=== PATIENT | male | born 1970 | race African-American/Black ===

== ENCOUNTER 2018-05-10 12:34 | Emergency (ER) | payer BC, OTHER ==
[~2018-05-10] VITALS: Ht 172.7 cm; Wt 81.7 kg
[~2018-05-10 12:34] MED LIST: ATRIPLA TABLET1 EACH PO; BENICAR HCT 401 EAC1 PO; BENICAR40 MG PO; BYSTOLIC 5 MG5 M1 PO; CORTISPORIN OTI10 M2; EDARBYCLOR 40-1 EAC1 PO; GENVOYA TABLET1 EACH PO; HYDROCHLOROTHIA25 M1 PO; MECLIZINE 25 MG25 M1 PO; MECLIZINE HCL25 M1 PO; NORVASC10 MG PO; ONDANSETRON ODT4 MG PO; POTASSIUM20 PO; ROSUVASTATIN CA10 MG PO; VALIUM2 MG PO
[2018-05-10 12:53] VITALS: BP 138/78
[2018-05-10] MEDS ORDERED: PREDNISONE 10 M10 MG PO (12:54)
== END 2018-05-10 13:31 | disposition home or self-care (01) ==
LOC: ER 12:34
DX: H69.91 Unspecified Eustachian tube disorder, right ear (principal); I10 Essential (primary) hypertension; Z96.643 Presence of artificial hip joint, bilateral; R42 Dizziness and giddiness; Z88.5 Allergy status to narcotic agent

== ENCOUNTER 2018-12-06 12:06 | Emergency (ER) | payer BC, OTHER ==
[~2018-12-06] VITALS: Ht 172.7 cm; Wt 86.2 kg
[~2018-12-06 12:06] MED LIST changes: +PREDNISONE 10 M10 MG PO
[2018-12-06] MEDS ORDERED: BYSTOLIC 5 MG5 M1 PO (12:20)
[2018-12-06 12:41] LABS: ABSOLUTE NEUTROPHILS 2.5 thou/uL (1.4-8.2); BASOPHILS 0.6 % (0.0-2.0); EOSINOPHILS 0.9 % (0.0-3.0); HEMATOCRIT 40.5 % (42.0-52.0); HEMOGLOBIN 14.2 gm/dL (14.0-18.0); LYMPHOCYTES 42.5 % (24.0-44.0); MCH 34.2 pg (26.0-34.0); MCHC 35.1 g/dL (28.0-37.0); MCV 97.4 fL (80.0-100.0); MONOCYTES 10.9 % (1.0-8.0); PLATELET COUNT 208 thou/uL (150-400); POLYS 45.1 % (36.0-66.0); RBC 4.16 mil/uL (4.50-6.00); WBC 5.6 thou/uL (4.0-11.0)
[2018-12-06 12:49] LABS: CALCIUM 9.5 mg/dL (8.5-10.1); CREATININE 1.7 mg/dL (0.7-1.3); POTASSIUM 3.2 mmol/L (3.5-5.1)
[2018-12-06 12:55] LABS: ALBUMIN 4.1 g/dL (3.4-5.0); TOTAL BILIRUBIN 0.4 mg/dL (<0.1-1.0); TOTAL PROTEIN 8.3 g/dL (6.4-8.2)
[2018-12-06 13:23] LABS: URINE BILIRUBIN NEGATIVE (Negative); URINE BLOOD 3+ (Negative); URINE CLARITY CLEAR; URINE COLOR YELLOW; URINE GLUCOSE-RANDOM* NEGATIVE (Negative); URINE KETONES NEGATIVE (Negative); URINE LEUKOCYTES-REFLEX NEGATIVE (Negative); URINE NITRITE-REFLEX NEGATIVE (Negative); URINE PROTEIN (DIPSTICK) NEGATIVE (Negative); URINE UROBILINOGEN 0.2 E.U./dl (0.2-1.0)
[2018-12-06 13:34] LABS: BACTERIA-REFLEX None Seen /HPF (None Seen); CASTS None Seen /LPF (None Seen); CRYSTALS None Seen /LPF (None Seen); MUCUS 4-6 Moderate strn/LPF (None Seen); SQUAMOUS 0-3 Few /LPF (0-3); URINE RBC >20 Many /HPF (0-2); URINE WBC-REFLEX 0-5 Rare /HPF (0-5)
[2018-12-06] MEDS ORDERED: ACYCLOVIR 200200 MG PO (14:45)
[2018-12-06] MEDS ORDERED: FLOMAX0.4 MG PO (14:48)
[2018-12-06] MEDS ORDERED: ONDANSETRON HCL4 M2 PO (14:48)
[2018-12-06] MEDS ORDERED: NORCO 5-325 TA1 EACH PO (14:48)
[2018-12-06] MEDS ORDERED: BACTRIM DS TAB1 EACH PO (14:52)
[2018-12-06] MEDS ORDERED: UNICOMPLEX M TA1 TA1 PO (14:54)
[2018-12-06 15:08] VITALS: BP 121/68
== END 2018-12-06 15:09 | disposition home or self-care (01) ==
LOC: ER 12:06
PROVIDERS: Nurse Practitioner Family
DX: N20.0 Calculus of kidney (principal); E87.6 Hypokalemia; N17.9 Acute kidney failure, unspecified; I10 Essential (primary) hypertension; Z88.5 Allergy status to narcotic agent; Z21 Asymptomatic human immunodeficiency virus [HIV] infection status; Z96.643 Presence of artificial hip joint, bilateral; Z87.442 Personal history of urinary calculi

== ENCOUNTER 2018-12-25 16:28 | Emergency (ER) | payer BC, OTHER ==
[~2018-12-25] VITALS: Ht 172.7 cm; Wt 86.2 kg
[~2018-12-25 16:28] MED LIST changes: +ACYCLOVIR 200200 MG PO; +BACTRIM DS TAB1 EACH PO; +FLOMAX0.4 MG PO; +NORCO 5-325 TA1 EACH PO; +ONDANSETRON HCL4 M2 PO; +UNICOMPLEX M TA1 TA1 PO
[2018-12-25 16:50] VITALS: BP 157/72
== END 2018-12-25 16:55 | disposition home or self-care (01) ==
LOC: ER 16:28
DX: J06.9 Acute upper respiratory infection, unspecified (principal); I10 Essential (primary) hypertension; Z96.641 Presence of right artificial hip joint; Z96.642 Presence of left artificial hip joint; Z88.5 Allergy status to narcotic agent

== ENCOUNTER 2019-01-17 12:37 | Emergency (ER) | payer BC, OTHER ==
[~2019-01-17] VITALS: Ht 172.7 cm; Wt 83.9 kg
[2019-01-17] MEDS ORDERED: MOBIC15 MG PO (13:01)
[2019-01-17] MEDS ORDERED: NORFLEX100 MG PO (13:02)
[2019-01-17 13:26] VITALS: BP 129/76
== END 2019-01-17 14:04 | disposition home or self-care (01) ==
LOC: ER 12:37
DX: S46.811A Strain of other muscles, fascia and tendons at shoulder and upper arm level, right arm, initial encounter (principal); I10 Essential (primary) hypertension; Z88.5 Allergy status to narcotic agent; Z21 Asymptomatic human immunodeficiency virus [HIV] infection status; Z96.643 Presence of artificial hip joint, bilateral; X50.0XXA Overexertion from strenuous movement or load, initial encounter; Y92.89 Other specified places as the place of occurrence of the external cause; Y93.89 Activity, other specified; Y99.8 Other external cause status

== ENCOUNTER 2019-04-01 13:39 | Emergency (ER) | payer BC, OTHER ==
[~2019-04-01] VITALS: Ht 172.7 cm; Wt 83.9 kg
[~2019-04-01 13:39] MED LIST changes: +MOBIC15 MG PO; +NORFLEX100 MG PO
[2019-04-01 14:37] LABS: URINE BILIRUBIN NEGATIVE (Negative); URINE BLOOD NEGATIVE (Negative); URINE CLARITY CLEAR; URINE COLOR YELLOW; URINE GLUCOSE-RANDOM* NEGATIVE (Negative); URINE KETONES NEGATIVE (Negative); URINE LEUKOCYTES-REFLEX NEGATIVE (Negative); URINE NITRITE-REFLEX NEGATIVE (Negative); URINE PROTEIN (DIPSTICK) TRACE (Negative); URINE UROBILINOGEN 0.2 E.U./dl (0.2-1.0)
[2019-04-01 15:38] LABS: ABSOLUTE NEUTROPHILS 3.6 thou/uL (1.4-8.2); BASOPHILS 0.8 % (0.0-2.0); EOSINOPHILS 0.7 % (0.0-3.0); HEMATOCRIT 42.1 % (42.0-52.0); HEMOGLOBIN 14.3 gm/dL (14.0-18.0); LYMPHOCYTES 32.9 % (24.0-44.0); MCH 33.9 pg (26.0-34.0); MCV 99.5 fL (80.0-100.0); PLATELET COUNT 212 thou/uL (150-400); POLYS 58.6 % (36.0-66.0); RBC 4.23 mil/uL (4.50-6.00); RDW 12.8 % (10.5-14.5)
[2019-04-01] MEDS ORDERED: MOBIC15 MG PO (15:39)
[2019-04-01] MEDS ORDERED: XANAX 0.25 MG0.25 MG PO (15:40)
[2019-04-01] MEDS ORDERED: ZYRTEC10 M4 PO (15:41)
[2019-04-01] MEDS ORDERED: BENADRYL25 MG PO (15:42)
[2019-04-01] MEDS ORDERED: FLONASE 0.05%50 MCG NASAL (15:42)
[2019-04-01 15:51] LABS: CALCIUM 9.1 mg/dL (8.5-10.1); CREATININE 1.4 mg/dL (0.7-1.3); POTASSIUM 3.7 mmol/L (3.5-5.1)
[2019-04-01 15:56] LABS: ALBUMIN 3.9 g/dL (3.4-5.0); TOTAL BILIRUBIN 0.3 mg/dL (<0.1-1.0)
[2019-04-01 16:04] LABS: MAGNESIUM 1.9 mg/dL (1.8-2.4); TROPONIN-I <0.06 ng/mL (<0.06)
[2019-04-01 17:27] VITALS: BP 143/73
--- NOTE | 2019-04-02 08:33 | EKG ---
[place] [address] [facility] [place] [address] ELECTROCARDIOGRAM REPORT Name: HAIDER CID Room #: [facility]#: [id number] ������������������ Admission: 04/01/19 ������������������ Attend Phys: Discharge: 04/01/19 ������������������ Date of : 70 Report #: [id number] ����������������������������������������������������������������� [id number] THIS REPORT FOR: //name// [facility] ED Test Date: 2019-04-01 Test Time: 15:17:01 Pat Name: HAIDER CID Department: Room: Gender: Tube Test Technician: neil : 1970 Requested By: Macho Campos Order Number: [id number] MD: Alex Petersen Measurements Intervals [place] Rate: 55 P: -31 GA: 154 QRS: -14 QRSD: 92 T: -2 QT: 426 QTc: 408 Interpretive Statements Sinus rhythm Abnormal R-wave progression, early transition Left ventricular hypertrophy Borderline T abnormalities, inferior leads Borderline ST elevation, consider early repolarization Compared to ECG 10/31/2013 19:06:24 Early R-wave progression is present Electronically Signed On 04-02-2019 8:33:07 CDT by Alex Petersen [email or web address] ��������������������������������������������� <ELECTRONICALLY SIGNED> ���������������������������������������� By: Alex Petersen MD, [facility] ��������������������������������������������� 04/02/19 0833 1517 1517 Alex Petersen MD, [facility] /EPI
== END 2019-04-01 17:53 | disposition home or self-care (01) ==
LOC: ER 13:39
PROVIDERS: Emergency Medicine
DX: R42 Dizziness and giddiness (principal); R53.83 Other fatigue; R68.2 Dry mouth, unspecified; I10 Essential (primary) hypertension; Z21 Asymptomatic human immunodeficiency virus [HIV] infection status; Z96.643 Presence of artificial hip joint, bilateral; Z88.5 Allergy status to narcotic agent

== ENCOUNTER 2019-07-17 18:45 | Emergency (ER) | payer BC, OTHER ==
[~2019-07-17] VITALS: Ht 172.7 cm; Wt 85.7 kg
[~2019-07-17 18:45] MED LIST changes: +BENADRYL25 MG PO; +FLONASE 0.05%50 MCG NASAL; +XANAX 0.25 MG0.25 MG PO; +ZYRTEC10 M4 PO
[2019-07-17] MEDS ORDERED: AMOXICILLIN 50500 MG PO (19:31)
[2019-07-17] MEDS ORDERED: TRAMADOL 50 MG50 MG PO (19:32)
[2019-07-17] MEDS ORDERED: PROTONIX40 MG PO (19:42)
[2019-07-17 20:00] VITALS: BP 135/90
--- NOTE | 2019-07-18 17:24 | EKG ---
[place] [address] [employer] [address] [facility] [address] ELECTROCARDIOGRAM REPORT Name: HAIDER CID Room #: [facility]#: [id number] ������������������ Admission: 07/17/19 ������������������ Attend Phys: Discharge: 07/17/19 ������������������ Date of : 70 Report #: [id number] ����������������������������������������������������������������� [id number] THIS REPORT FOR: //name// [facility] ED Test Date: 2019-07-17 Test Time: 19:28:47 Pat Name: HAIDER CID Department: Room: Gender: Leno Sewer: DIMITRY : 1970 Requested By: Candido Melaar Order Number: [id number] MD: Alex Petersen Measurements Intervals [place] Rate: 58 P: 19 AR: 145 QRS: -7 QRSD: 110 T: -11 QT: 415 QTc: 408 Interpretive Statements Sinus rhythm RSR' in V1 or V2, right VCD Persistent, diffuse ST elevation, consider early repolarization Compared to ECG 04/01/2019 15:17:01 No significant change was found Electronically Signed On 07-18-2019 17:24:40 CDT by Alex Petersen [email or web address] ��������������������������������������������� <ELECTRONICALLY SIGNED> ���������������������������������������� By: Alex Petersen MD, [facility] ��������������������������������������������� 07/18/19 1724 1928 27 Alex Petersen MD, [facility] /EPI
== END 2019-07-17 20:00 | disposition home or self-care (01) ==
LOC: ER 18:45
DX: K30 Functional dyspepsia (principal); R06.6 Hiccough; I10 Essential (primary) hypertension; Z88.5 Allergy status to narcotic agent; Z21 Asymptomatic human immunodeficiency virus [HIV] infection status; Z96.641 Presence of right artificial hip joint; Z96.642 Presence of left artificial hip joint

== ENCOUNTER 2019-12-06 13:39 | Emergency (ER) | payer BC, OTHER ==
[~2019-12-06] VITALS: Ht 172.7 cm; Wt 83.9 kg
[~2019-12-06 13:39] MED LIST changes: +AMOXICILLIN 50500 MG PO; +PROTONIX40 MG PO; +TRAMADOL 50 MG50 MG PO
[2019-12-06 14:12] LABS: ABSOLUTE NEUTROPHILS 2.3 thou/uL (1.4-8.2); BASOPHILS 0.9 % (0.0-2.0); EOSINOPHILS 0.6 % (0.0-3.0); HEMATOCRIT 44.1 % (42.0-52.0); HEMOGLOBIN 14.7 gm/dL (14.0-18.0); LYMPHOCYTES 38.3 % (24.0-44.0); MCH 33.2 pg (26.0-34.0); MCHC 33.4 g/dL (28.0-37.0); MCV 99.3 fL (80.0-100.0); MONOCYTES 11.1 % (1.0-8.0); PLATELET COUNT 222 thou/uL (150-400); POLYS 49.1 % (36.0-66.0); RBC 4.44 mil/uL (4.50-6.00); RDW 13.5 % (10.5-14.5); WBC 4.6 thou/uL (4.0-11.0)
[2019-12-06 14:26] LABS: CALCIUM 9.3 mg/dL (8.5-10.1); CREATININE 1.4 mg/dL (0.7-1.3); POTASSIUM 3.1 mmol/L (3.5-5.1)
[2019-12-06 14:30] LABS: ALBUMIN 4.2 g/dL (3.4-5.0); TOTAL BILIRUBIN 0.3 mg/dL (<0.1-1.0); TOTAL PROTEIN 8.7 g/dL (6.4-8.2)
[2019-12-06 17:42] VITALS: BP 133/81
--- NOTE | 2019-12-10 12:33 | EKG ---
[facility] [place] [address] ELECTROCARDIOGRAM REPORT Name: HAIDER CID Room #: [facility]#: [id number] Admission: 12/06/19 Attend Phys: Discharge: 12/06/19 Date of : 70 Report #: [id number] THIS REPORT FOR: cc: Rianna Swann MD, Karla L. MD Lundgren, Craig H. MD [facility] ~ THIS REPORT FOR: //name// [facility] ED Test Date: 2019-12-06 Test Time: 13:57:14 Pat Name: HAIDER CID Department: Room: Gender: Hospice Nurse: FERNANDEZ : 1970 Requested By: Glory Verdugo Order Number: [id number] MD: Alex Petersen Measurements Intervals [place] Rate: 60 P: 15 ME: 159 QRS: -20 QRSD: 94 T: -13 QT: 417 QTc: 417 Interpretive Statements Sinus rhythm Abnormal R-wave progression, early transition Left ventricular hypertrophy Early repolarization Compared to ECG 07/17/2019 19:28:47 No significant change was found Electronically Signed On 12-08-2019 7:31:31 [employer] by Alex Petersen [email or web address] <ELECTRONICALLY SIGNED> By: Alex Petersen MD, [facility] 12/08/19 0731 1357 1357 Alex Petersen MD, [facility] /EPI
== END 2019-12-06 17:45 | disposition home or self-care (01) ==
LOC: ER 13:39
PROVIDERS: Emergency Medicine
DX: R42 Dizziness and giddiness (principal); E87.6 Hypokalemia; I10 Essential (primary) hypertension; Z96.643 Presence of artificial hip joint, bilateral; Z88.5 Allergy status to narcotic agent

== ENCOUNTER 2020-05-07 18:44 | Emergency (ER) | payer BC, OTHER ==
[~2020-05-07] VITALS: Ht 172.7 cm; Wt 86.2 kg
[2020-05-07 19:46] LABS: HEMATOCRIT 43.2 % (42.0-52.0); HEMOGLOBIN 15.1 gm/dL (14.0-18.0); MCH 34.7 pg (26.0-34.0); MCV 99.2 fL (80.0-100.0); RBC 4.36 mil/uL (4.50-6.00); RDW 13.1 % (10.5-14.5); WBC 9.8 thou/uL (4.0-11.0)
[2020-05-07 19:52] LABS: CALCIUM 9.5 mg/dL (8.5-10.1); CREATININE 1.5 mg/dL (0.7-1.3); POTASSIUM 3.5 mmol/L (3.5-5.1)
[2020-05-07 19:56] LABS: ALBUMIN 4.4 g/dL (3.4-5.0); TOTAL BILIRUBIN 0.2 mg/dL (0.2-1.0); TOTAL PROTEIN 7.6 g/dL (6.4-8.2); URIC ACID* 8.7 mg/dL (3.5-7.2)
[2020-05-07] MEDS ORDERED: INDOMETHACIN 2525 MG PO (20:03)
[2020-05-07] MEDS ORDERED: NORCO 5-325 TA1 EAC2 PO (20:03)
[2020-05-07] MEDS ORDERED: PREDNISONE 10 M10 M1 PO (20:03)
[2020-05-07 20:15] VITALS: BP 134/83
== END 2020-05-07 20:15 | disposition home or self-care (01) ==
LOC: ER 18:44
PROVIDERS: Physician Assistant
DX: M10.9 Gout, unspecified (principal); M79.675 Pain in left toe(s); I10 Essential (primary) hypertension; Z88.5 Allergy status to narcotic agent; Z79.899 Other long term (current) drug therapy; Z96.643 Presence of artificial hip joint, bilateral

== ENCOUNTER 2021-01-18 17:45 | Emergency (ER) | payer OTHER ==
[~2021-01-18] VITALS: Ht 172.7 cm; Wt 85.3 kg
[~2021-01-18 17:45] MED LIST changes: +INDOMETHACIN 2525 MG PO; +NORCO 5-325 TA1 EAC2 PO; +PREDNISONE 10 M10 M1 PO
[2021-01-18 19:34] VITALS: BP 146/75
== END 2021-01-18 19:36 | disposition home or self-care (01) ==
LOC: ER 17:45
DX: I10 Essential (primary) hypertension (principal); M79.10 Myalgia, unspecified site; Z79.899 Other long term (current) drug therapy; Z88.5 Allergy status to narcotic agent

== ENCOUNTER 2021-02-21 12:22 | Emergency (ER) | payer OTHER ==
[~2021-02-21] VITALS: Ht 172.7 cm; Wt 84.8 kg
[2021-02-21] MEDS ORDERED: TRIUMEQ TABLET1 EACH PO (12:38)
[2021-02-21 13:55] VITALS: BP 126/70
== END 2021-02-21 13:58 | disposition home or self-care (01) ==
LOC: ER 12:22
DX: H53.8 Other visual disturbances (principal); I10 Essential (primary) hypertension; Z88.5 Allergy status to narcotic agent; Z79.899 Other long term (current) drug therapy; Z96.643 Presence of artificial hip joint, bilateral